=== PATIENT | female | born 1950 | race Caucasian/White ===

== ENCOUNTER 2017-10-05 22:11 | Inpatient (IN) | payer MEDICARE, BC ==
[~2017-10-05] VITALS: Ht 157.5 cm; Wt 53.5 kg
[~2017-10-05 22:11] MED LIST: DULA0.75 SQ
--- NOTE | 2017-10-05 22:30 | NUR ---
Patient brought in by ambulance transported from [facility], patient came from [facility], patient was given Ativan prior to transport @2119. Patient c/o anxiety, reports alcohol abuse, and was hospitalized 3 days ago.
--- NOTE | 2017-10-05 22:36 | NUR ---
Dr. Eldridge at bedside for MSE.
--- NOTE | 2017-10-05 22:43 | NUR ---
Christos Cesar at bedside for Psych Evaluation.
[2017-10-05] MEDS ORDERED: METF500T6 PO (23:09)
[2017-10-05] MEDS ORDERED: TAMS-3 PO (23:09)
[2017-10-05] MEDS ORDERED: CHOL10005 PO (23:09)
[2017-10-05] MEDS ORDERED: BACL20TA PO (23:09)
[2017-10-05] MEDS ORDERED: TRAZ300T2 PO (23:09)
[2017-10-05] MEDS ORDERED: THYR120T2 PO (23:09)
[2017-10-05] MEDS ORDERED: OXCA300T4 PO (23:09)
[2017-10-05] MEDS ORDERED: QUET300T3 PO (23:09)
[2017-10-05] MEDS ORDERED: HYDR-500 PO (23:09)
[2017-10-05] MEDS ORDERED: DOCU100C36 PO (23:09)
[2017-10-05] MEDS ORDERED: CEPH-570 PO (23:09)
--- NOTE | 2017-10-06 00:29 | NUR ---
Passed report to Kristi Jc.
--- NOTE | 2017-10-06 01:20 | NUR ---
ADMITTED AT APPROX 00;40 A 67Y/O FEMALE FROM [facility] TO [facility] ON A 5150 72HR HOLD FOR GD. HOLD STARTS 10/05 17 @2300 AND WILL END 10/08/17 @2300 .PER HOLD SHE WAS SAID TO BE DEPRESSED UNABLE TO SLEEP HEARING VOICES SAY'YOU ARE BI POLAR'.UPON ADMISSION PATIENT WAS A/O X3 WITH PERIODS OF CONFUSION.PATIENT STATES 'I AM HERE BECAUSE I HAD A BAD REACTION TO A DRUG GABABENTIN'. NOTED TO BE IRRITABLE ,FEARFUL ANXIOUS AND KEPT NODDING AND ROCKING BACK AND FORTH. SHE HOWEVER DENIES SI/HI BUT ABLE TO CONTRACT FOR SAFETY. UPON ASSESMENT THERE IS A SMALL RT. KNEE ABRASION
[2017-10-06] MEDS ORDERED: LITH450T2 PO (01:53)
[2017-10-06] MEDS ORDERED: LORAZEPAM 0.5 MG TABLET PO PRN (02:30)
[2017-10-06] MEDS ORDERED: ZOLPIDEM 5 MG TABLET PO PRN (02:30)
[2017-10-06] MEDS ORDERED: LORAZEPAM 1 MG TABLET PO PRN (02:30)
[2017-10-06] MEDS ORDERED: MAGNESIUM HYDROXIDE 30 ML LIQUID UDC PO PRN (02:30)
[2017-10-06] MEDS ORDERED: ACETAMINOPHEN 325 MG TABLET PO PRN (02:30)
[2017-10-06] MEDS ORDERED: MAG HYDROX/AL HYDROX/SIMETH 30 ML LIQUID UDC PO PRN (02:30)
[2017-10-06 05:25] VITALS: BP 152/81
[2017-10-06 06:05] LABS: *BLOOD, URINE NEGATIVE (NEGATIVE); *CLARITY,URINE CLEAR (CLEAR); *COLOR,URINE YELLOW (YELLOW); *KETONES,URINE 2+ (NEGATIVE); *PROTEIN,URINE TRACE (NEGATIVE); *UROBILINOGEN,URINE 0.2 E.U./dl (NORMAL); LEUKOCYTE ESTERASE ,URINE NEGATIVE (NEGATIVE); NITRITE, URINE POSITIVE (NEGATIVE); UGLUCOSE TRACE (NEGATIVE)
[2017-10-06 06:16] LABS: *BILIRUBIN,URIN 1+ (NEGATIVE)
[2017-10-06 06:22] LABS: BACTERIA,URINE MANY /HPF (NONE SEEN); SQUAMOUS EPITHELIAL CELL,UR MANY /HPF (NONE SEEN); WBC,URINE 0-3 /HPF (0-3)
[2017-10-06 07:30] VITALS: BP 153/71
[2017-10-06] MEDS: LORAZEPAM 0.5 MG TABLET PO PRN ×2 (08:41→14:47)
[2017-10-06] MEDS: ESCITALOPRAM OXALATE 10 MG TABLET PO SCH ×2 (09:15→17:13)
[2017-10-06] MEDS: CEPHALEXIN MONOHYDRATE 500 MG CAPSULE PO SCH ×3 (12:09→21:48)
--- NOTE | 2017-10-06 12:15 | NUR ---
KEFLEX ORDERED FOR EVERY 8 HOURS AND SCHEDULED FOR 11 30 AM NOT 1400 TOO CLOSE TO GIVE
[2017-10-06 15:02] VITALS: BP 158/82
--- NOTE | 2017-10-06 15:36 | NUR ---
Social Work Discharge Note: Patient requested call to [facility]. [phone]. [employer] student spoke with Ariel mckenzie who confirmed that her belongings are there. Patient was recently detoxing from alcohol at that rehabilitation facility. Pt. has an apartment at [address] [place] [address]. [address], [facility] [address] and will return there once stable. Pt. also says she wants to go to [place] once she is stable. She says she has already made plans for this. This plan will be explored further. patient's baseline is not clear. She remains very anxious currently. Her discharge plan will be explored further once she is more stable.
[2017-10-06] MEDS: MULTIVITAMINS,THERAPEUTIC TABLET PO SCH (16:00)
[2017-10-06] MEDS: DOCUSATE SODIUM 100 MG CAPSULE PO SCH (17:12)
[2017-10-06] MEDS: THIAMINE HCL 100 MG TABLET PO SCH (17:12)
[2017-10-06] MEDS: TAMSULOSIN HCL 0.4 MG CAP.SR.24H PO SCH (17:13)
[2017-10-06] MEDS: AMLODIPINE 5 MG TABLET PO SCH (17:13)
[2017-10-06] MEDS: FOLIC ACID 1 MG TABLET PO SCH (17:13)
[2017-10-06] MEDS: LITHIUM CARBONATE 300 MG CAPSULE PO SCH (17:14)
[2017-10-06 19:57] VITALS: BP 142/71
[2017-10-06] MEDS: QUETIAPINE FUMARATE 100 MG TABLET PO SCH (20:14)
--- NOTE | 2017-10-06 20:30 | NUR ---
RECEIVED PATIENT IN HER ROOM, HE WAS NOTED A/O X 3. SHE IS ABLE TO WALK WITH SLOW STEADY GAIT AND ABLE TO MAKE HER NEEDS KNOWN. SHE WAS NOTED WITHDRAWN, DEPRESSED MOOD, BLUNTED AFFECT. PATIENT DENIES SI OR ANY THOUGHT TO HARM SELF. SHE IS ABLE TO CFS. DENIES PAIN OR DISCOMFORT. PT CONTINUE COMPLIANT WITH MEDICATION REGIMENT AT THIS TIME. SAFETY EMPHASIS, BED AT LOWEST POSITION WITH WHEELS LOCKED AND FREQUENT HEAD CHECKS.
--- NOTE | 2017-10-07 01:49 | NUR ---
PT CAME OUT OF HER ROOM REQUESTING A "SLEEPING PILL". AMBIEN 5MG PO PRN FOR INSOMNIA WAS GIVEN PER NURSE ASSESSMENT AND PT REQUEST. WILL CONTINUE TO MONITOR CLOSELY.
[2017-10-07] MEDS: CEPHALEXIN MONOHYDRATE 500 MG CAPSULE PO SCH ×3 (06:16→21:05)
[2017-10-07] MEDS: THYROID 60 MG TABLET PO SCH (06:17)
[2017-10-07] MEDS: BLOOD SUGAR DIAGNOSTIC 1 EACH STRIP VI SCH ×2 (06:20→09:24)
[2017-10-07] MEDS: LORAZEPAM 0.5 MG TABLET PO PRN ×3 (06:23→17:08)
--- NOTE | 2017-10-07 06:47 | NUR ---
PATIENT SLEPT FOR APPROX 7.30 HRS THROUGH THE NIGHT. BGL IS 122. PATIENT WAS NOTED WITH ANXIOUS MOOD. SHE IS ASKING TO SEE HER PSYCH MD. HE STATED, "I NEED MORE MEDICATION FOR BIPOLAR, I AM NOT TAKING ENOUGH. WHAT TIME AM I GOING TO SEE THE DOCTOR." PATIENT WAS REDIRECTED MULTIPLE TIME. ATIVAN 0.5MG PO PRN WAS GIVEN FOR ANXIOUS BX. WILL CONTINUE TO MONITOR.
[2017-10-07 07:30] VITALS: BP 139/74
[2017-10-07 07:58] LABS: BASOPHILS % (AUTO) 0.8 % (0.0-2.0); EOSINOPHILS # (AUTO) 0.1 K/uL (0.0-0.7); EOSINOPHILS % (AUTO) 1.5 % (0.0-7.0); HEMATOCRIT 33.7 % (31.2-41.9); HEMOGLOBIN 11.6 g/dL (10.9-14.3); LYMPHOCYTES # (AUTO) 1.3 K/uL (20.0-40.0); LYMPHOCYTES % (AUTO) 19.8 % (20.5-51.5); MEAN CORPUSCULAR HEMOGLOBIN 28.9 uug (24.7-32.8); MEAN CORPUSCULAR HGB CONC 35 g/dL (32.3-35.6); MONOCYTES # (AUTO) 0.5 K/uL (2.0-10.0); MONOCYTES % (AUTO) 8.1 % (0.0-11.0); NEUTROPHILS # (AUTO) 4.4 K/uL (1.8-8.9); NEUTROPHILS % (AUTO) 69.8 % (38.5-71.5); PLATELET COUNT (AUTO) 277 K/uL (179-408); RED BLOOD CELL COUNT(AUTO) 4.01 MIL/uL (3.63-4.92); WHITE BLOOD COUNT (AUTO) 6.4 K/uL (3.8-11.8)
--- NOTE | 2017-10-07 08:00 | NUR ---
RECEIVED PATIENT IN BED, AFEBRILE, A/O X 3. SHE IS ABLE TO WALK WITH SLOW STEADY GAIT AND ABLE TO VERBALIZE KNOWN NEEDS. SHE WAS NOTED WITHDRAWN, DEPRESSED MOOD, BLUNTED AFFECT. PATIENT DENIES PAIN OR ANY THOUGHT TO HARM SELF. SHE IS ABLE TO CFS. DENIES DISCOMFORT. PT CONTINUE COMPLIANT WITH MEDICATION REGIMENT AT THIS TIME. SAFETY EMPHASIS, BED AT LOWEST POSITION WITH WHEELS LOCKED AND FREQUENT HEAD CHECKS.
[2017-10-07 08:15] LABS: BILIRUBIN,TOTAL 0.2 mg/dL (0.2-1.0); CREATININE 0.8 mg/dL (0.6-1.3); MAGNESIUM 1.5 mg/dL (1.8-2.4); PHOSPHOROUS 3.1 mg/dL (2.5-4.9); POTASSIUM 3.9 mmol/L (3.5-5.1); TOTAL PROTEIN, SERUM 6.2 g/dL (6.4-8.2)
[2017-10-07] MEDS: TAMSULOSIN HCL 0.4 MG CAP.SR.24H PO SCH ×2 (08:31→17:08)
[2017-10-07] MEDS: FOLIC ACID 1 MG TABLET PO SCH (08:31)
[2017-10-07 08:32] LABS: THYROID STIMULATING HORMONE 5.4 mIU/mL (0.358-3.740)
[2017-10-07] MEDS: LITHIUM CARBONATE 300 MG CAPSULE PO SCH ×2 (08:32→17:09)
[2017-10-07] MEDS: MULTIVITAMINS,THERAPEUTIC TABLET PO SCH (08:32)
[2017-10-07] MEDS: OXCARBAZEPINE 300 MG TABLET PO SCH (08:32)
[2017-10-07] MEDS: THIAMINE HCL 100 MG TABLET PO SCH (08:32)
[2017-10-07] MEDS: DOCUSATE SODIUM 100 MG CAPSULE PO SCH ×2 (08:32→17:00)
[2017-10-07] MEDS: CHOLECALCIFEROL 1,000 UNIT TABLET PO SCH (08:32)
[2017-10-07] MEDS: AMLODIPINE 5 MG TABLET PO SCH (08:33)
[2017-10-07] MEDS ORDERED: THYROID 120 MG PO SCH (09:00)
[2017-10-07] MEDS ORDERED: MAGNESIUM OXIDE 400 MG TABLET PO ONE (13:45)
--- NOTE | 2017-10-07 15:06 | NUR ---
Gps/Analysis Manager- Ambulatory, encouraged to attend her group therapy, Compliant with her routine medications, denies any discomfort Adequate fluid intake.
[2017-10-07 16:07] VITALS: BP 104/78
[2017-10-07 19:29] VITALS: BP 149/70
[2017-10-07] MEDS: QUETIAPINE FUMARATE 100 MG TABLET PO SCH (20:27)
--- NOTE | 2017-10-07 20:56 | NUR ---
rECEIVED PATIENT IN HER ROOM RESTING. ALERT AND ORIENTED X 3. ABLE TO WALK WITH SLOW STEADY GAIT AND MAKING NEEDS KNOWN. SHE WAS NOTED WITHDRAWN, DEPRESSED MOOD AND A BLUNTED AFFECT. DENIES ANY SUICIDAL IDEATION OR ANY THOUGHT TO HARM SELF. aBLE TO CONTRACT FOR SAFETY. DENIES ANY PAIN NOR ANY DISCOMFORT. COMPLIANT WITH MEDICATION REGIMEN AT THIS TIME. SAFETY EMPHASIS MAINTAINED. BED IN LOWEST POSITION WITH WHEELS LOCKED AND FREQUENT HEAD CHECKS. VITAL SIGNS TAKEN AND RECORDED. WILL MONITOR PATIENT.
--- NOTE | 2017-10-08 00:02 | NUR ---
SLEEPING UPON ROUNDS. NO ACUTE DISTRESS NOTED. WILL MONITOR PATIENT.
[2017-10-08] MEDS: LORAZEPAM 0.5 MG TABLET PO PRN ×3 (06:14→17:05)
[2017-10-08] MEDS: CEPHALEXIN MONOHYDRATE 500 MG CAPSULE PO SCH ×2 (06:14→14:13)
[2017-10-08] MEDS: THYROID 60 MG TABLET PO SCH (06:15)
--- NOTE | 2017-10-08 06:18 | NUR ---
WAKE UP EARLY, IN NO ACUTE DISTRESS. ATIVAN 0.5 PO GIVEN PER REQUEST. TOLERATED OTHER PILLS WITHOUT ANY DIFFICULTY. MAKING NEEDS KNOWN.
--- NOTE | 2017-10-08 06:22 | NUR ---
ACCUCHECK THIS AM WAS 116.
[2017-10-08] MEDS: BLOOD SUGAR DIAGNOSTIC 1 EACH STRIP VI SCH (07:27)
[2017-10-08 07:53] VITALS: BP 141/70
[2017-10-08] MEDS: ESCITALOPRAM OXALATE 10 MG TABLET PO SCH (08:12)
[2017-10-08] MEDS: LITHIUM CARBONATE 300 MG CAPSULE PO SCH ×2 (08:12→16:33)
[2017-10-08] MEDS: MULTIVITAMINS,THERAPEUTIC TABLET PO SCH ×2 (08:12→09:00)
[2017-10-08] MEDS: DOCUSATE SODIUM 100 MG CAPSULE PO SCH ×4 (08:12→16:33)
[2017-10-08] MEDS: THIAMINE HCL 100 MG TABLET PO SCH ×2 (08:13→09:00)
[2017-10-08] MEDS: TAMSULOSIN HCL 0.4 MG CAP.SR.24H PO SCH ×2 (08:13→16:33)
[2017-10-08] MEDS: CHOLECALCIFEROL 1,000 UNIT TABLET PO SCH ×2 (08:13→09:00)
[2017-10-08] MEDS: FOLIC ACID 1 MG TABLET PO SCH (08:13)
[2017-10-08] MEDS: AMLODIPINE 5 MG TABLET PO SCH (08:13)
[2017-10-08] MEDS: OXCARBAZEPINE 300 MG TABLET PO SCH (08:13)
--- NOTE | 2017-10-08 12:09 | NUR ---
Initial DC Plan: Patient was previously residing at [facility] but is planning to return home [[address] [place] [address];[phone]] upon discharge. SW will follow up with MD, patient, and patient's son Kendrick [[phone]] to discuss most appropriate discharge plans. Patient will be provided a brief substance abuse intervention. SW will form a safe and proper discharge.
--- NOTE | 2017-10-08 13:53 | NUR ---
Firearms Reporting: RAKESH submitted Mental Health Report to [facility] on 10/08.
--- NOTE | 2017-10-08 14:14 | NUR ---
Gps/Overnight Stocker- Verbalized feelings of sadness, feeling of wanting to cry per patient, " i cant moved, i idont have energy to do anythiing ". Encouraged participation in her group therapy, emotionally labile.Continue to monitor patient, encouraged continued verbalizations of her feelings.
[2017-10-08 15:51] VITALS: BP 127/70
[2017-10-08] MEDS: QUETIAPINE FUMARATE 100 MG TABLET PO SCH (20:31)
[2017-10-08 21:50] VITALS: BP 126/67
[2017-10-09] MEDS: THYROID 60 MG TABLET PO SCH (06:04)
[2017-10-09] MEDS: BLOOD SUGAR DIAGNOSTIC 1 EACH STRIP VI SCH (06:27)
[2017-10-09] MEDS: LORAZEPAM 0.5 MG TABLET PO PRN ×3 (06:31→18:25)
--- NOTE | 2017-10-09 06:40 | NUR ---
GPS: REMAIN CALM AND COOPERATIVE WITH MEDICATIONS AND CARE. SHOWERED THIS MORNING. PATIENT C/O ANXIETY THIS MORNING. ATIVAN 0.5 MG PO GIVEN.SLEPT 7:30 HRS THROUGH THE NIGHT.PATIENT NOTED TEARFUL @ TIME STATED I HAVE NOTHING TO LIVE. I AM DEPRESSED. EMOTIONAL SUPPORT PROVIDED. CONTINUE MONITORING FOR SAFETY.
[2017-10-09 07:09] LABS: BASOPHILS % (AUTO) 0.7 % (0.0-2.0); EOSINOPHILS # (AUTO) 0.2 K/uL (0.0-0.7); EOSINOPHILS % (AUTO) 2.8 % (0.0-7.0); HEMATOCRIT 34.9 % (31.2-41.9); HEMOGLOBIN 12.1 g/dL (10.9-14.3); LYMPHOCYTES % (AUTO) 29.2 % (20.5-51.5); MEAN CORPUSCULAR HGB CONC 35 g/dL (32.3-35.6); MEAN CORPUSCULAR VOLUME 83.8 fL (75.5-95.3); MONOCYTES # (AUTO) 0.6 K/uL (2.0-10.0); MONOCYTES % (AUTO) 8.4 % (0.0-11.0); NEUTROPHILS # (AUTO) 3.9 K/uL (1.8-8.9); NEUTROPHILS % (AUTO) 58.9 % (38.5-71.5); PLATELET COUNT (AUTO) 318 K/uL (179-408); RED BLOOD CELL COUNT(AUTO) 4.17 MIL/uL (3.63-4.92); WHITE BLOOD COUNT (AUTO) 6.7 K/uL (3.8-11.8)
[2017-10-09 07:52] LABS: BILIRUBIN,TOTAL 0.3 mg/dL (0.2-1.0); CREATININE 0.9 mg/dL (0.6-1.3); MAGNESIUM 1.7 mg/dL (1.8-2.4); PHOSPHOROUS 3.6 mg/dL (2.5-4.9); POTASSIUM 3.9 mmol/L (3.5-5.1); TOTAL PROTEIN, SERUM 6.2 g/dL (6.4-8.2)
[2017-10-09 07:54] VITALS: BP 140/65
[2017-10-09] MEDS: AMLODIPINE 5 MG TABLET PO SCH (08:11)
[2017-10-09] MEDS: FOLIC ACID 1 MG TABLET PO SCH (08:11)
[2017-10-09] MEDS: DOCUSATE SODIUM 100 MG CAPSULE PO SCH ×2 (08:11→16:02)
[2017-10-09] MEDS: CHOLECALCIFEROL 1,000 UNIT TABLET PO SCH (08:11)
[2017-10-09] MEDS: LITHIUM CARBONATE 300 MG CAPSULE PO SCH ×2 (08:21→16:02)
[2017-10-09] MEDS: THIAMINE HCL 100 MG TABLET PO SCH (08:21)
[2017-10-09] MEDS: TAMSULOSIN HCL 0.4 MG CAP.SR.24H PO SCH ×2 (08:21→16:02)
[2017-10-09] MEDS: OXCARBAZEPINE 300 MG TABLET PO SCH (08:21)
[2017-10-09] MEDS: MULTIVITAMINS,THERAPEUTIC TABLET PO SCH (08:21)
[2017-10-09] MEDS ORDERED: MAGNESIUM OXIDE 400 MG TABLET PO ONE (11:00)
[2017-10-09 15:37] VITALS: BP 134/73
[2017-10-09 20:00] VITALS: BP 124/72
[2017-10-09] MEDS: QUETIAPINE FUMARATE 100 MG TABLET PO SCH (20:03)
[2017-10-10] MEDS: THYROID 60 MG TABLET PO SCH (06:13)
--- NOTE | 2017-10-10 06:29 | NUR ---
GPS: REMAIN CALM AND COOPERATIVE WITH CARE. NO AGITATION NOTED AT THIS TIME.SLEPT 7.5 HRS THROUGH THE NIGHT.RESTING IN BED COMFORTABLY. CONTINUE PLAN OF CARE.
[2017-10-10] MEDS: BLOOD SUGAR DIAGNOSTIC 1 EACH STRIP VI SCH ×2 (06:47→06:57)
[2017-10-10] MEDS: LORAZEPAM 0.5 MG TABLET PO PRN ×2 (06:52→13:03)
--- NOTE | 2017-10-10 06:55 | NUR ---
GPS: PATIENT C/O ANXIETY. ATIVAN 0.5 MG PO GIVEN PER PATIENT REQUESTED.
[2017-10-10 08:25] VITALS: BP 115/54
[2017-10-10] MEDS: OXCARBAZEPINE 300 MG TABLET PO SCH (08:59)
[2017-10-10] MEDS: CHOLECALCIFEROL 1,000 UNIT TABLET PO SCH (08:59)
[2017-10-10] MEDS: LITHIUM CARBONATE 300 MG CAPSULE PO SCH ×2 (08:59→16:59)
[2017-10-10] MEDS: DOCUSATE SODIUM 100 MG CAPSULE PO SCH ×2 (08:59→16:59)
[2017-10-10] MEDS: THIAMINE HCL 100 MG TABLET PO SCH (08:59)
[2017-10-10] MEDS: MULTIVITAMINS,THERAPEUTIC TABLET PO SCH (09:00)
[2017-10-10] MEDS: TAMSULOSIN HCL 0.4 MG CAP.SR.24H PO SCH ×2 (09:00→16:59)
[2017-10-10] MEDS: FOLIC ACID 1 MG TABLET PO SCH (09:00)
[2017-10-10] MEDS: AMLODIPINE 5 MG TABLET PO SCH (09:01)
--- NOTE | 2017-10-10 11:44 | NUR ---
RECEIVED Pt IN BED, AWAKE A/O X 3, COOPERATIVE, ANXIETY NOTED, DEPRESSED, FLAT AFFECT, COMPLIANT WITH MEDS AND CARE STAFF, DENIES SI. Pt PARTICIPATED IN GROUP ACTIVITIES THIS MORNING. Pt CAME TO NURSE ASKING FOR ATIVAN DUE TO ANXIETY. ATIVAN WAS GIVEN LESS THAN 5 HOURS AGO BY SLIP MAKER NURSE. ENCOURAGED Pt TO USE BREATHING/RELAXATION TECHNIQUES. WILL CLOSELY MONITOR Pt THROUGHOUT THE SHIFT.
--- NOTE | 2017-10-10 13:30 | NUR ---
Pt STILL ANXIOUS AND CONTINUOUSLY REQUESTING FOR ATIVAN. ASSESSED BY NURSE, Pt STATED 10/10 LEVEL OF ANXIETY, ADMINISTERED ATIVAN 0.5 MG PO PER ORDER. WILL CONTINUE TO MONITOR Pt ANXIETY. Pt ACCUCHECK WAS DISCONTINUED BY PHYSICIAN, WILL CHANGE CURRENT CONSISTENT CARB DIET TO REGULAR DIET. FOOD SERVED FOR LUNCH WAS BASED ON CARB DIET, Pt REFUSED TO EAT, CALLED DIETARY AND EXPLAINED THAT THE DIET WILL BE CHANGED TO REGULAR. ORDERED PEANUT BUTTER AND JELLY SANDWICH PER Pt REQUEST.
[2017-10-10 16:27] VITALS: BP 133/54
[2017-10-10 20:00] VITALS: BP 119/69
[2017-10-10] MEDS: QUETIAPINE FUMARATE 100 MG TABLET PO SCH (20:48)
--- NOTE | 2017-10-10 23:59 | NUR ---
PHARMACY NOTE: TRILEPTAL CANCELLED IN ERROR, WRONG PATIENT. REORDERED.
[2017-10-11] MEDS: THYROID 60 MG TABLET PO SCH (06:28)
--- NOTE | 2017-10-11 06:55 | NUR ---
Pt REFUSED ABREVA THIS MORNING. REMAINS IRRITABLE AND LABILE.
[2017-10-11] MEDS ORDERED: BLOOD SUGAR DIAGNOSTIC 1 EACH STRIP VI SCH (07:00)
[2017-10-11 07:30] VITALS: BP 135/54
[2017-10-11] MEDS: DOCUSATE SODIUM 100 MG CAPSULE PO SCH (08:46)
[2017-10-11] MEDS: TAMSULOSIN HCL 0.4 MG CAP.SR.24H PO SCH (08:47)
[2017-10-11] MEDS: FOLIC ACID 1 MG TABLET PO SCH (08:48)
[2017-10-11 08:49] VITALS: BP 135/54
[2017-10-11] MEDS: LORAZEPAM 0.5 MG TABLET PO PRN (08:49)
[2017-10-11] MEDS: MULTIVITAMINS,THERAPEUTIC TABLET PO SCH (08:49)
[2017-10-11] MEDS: CHOLECALCIFEROL 1,000 UNIT TABLET PO SCH (08:49)
[2017-10-11] MEDS: THIAMINE HCL 100 MG TABLET PO SCH (08:49)
[2017-10-11] MEDS: AMLODIPINE 5 MG TABLET PO SCH (08:49)
[2017-10-11] MEDS: LITHIUM CARBONATE 300 MG CAPSULE PO SCH (08:52)
[2017-10-11] MEDS ORDERED: OXCARBAZEPINE 300 MG TABLET PO SCH (09:00)
--- NOTE | 2017-10-11 09:21 | NUR ---
DC Note: Patient will be discharged home [[address] [place] [address]; [phone]] via private transportation. Patient's brother Cy Galarza [[phone]] will garbage pick up worker patient from the hospital. Patient is alert and oriented x4 and denies SI and HI. She is aware and agreeable to discharge plans. Patient will follow up with her linux support engineer Dr. Fadi Kang [[address], [place] [address]; ] and psychiatrist Dr. Mitchell Knutson [[address], [place] [address]; ]. Patient was provided with additional outpatient mental health resources to [facility] , [facility] Swain , and the [place] [facility] . Patient was also provided a brief substance abuse intervention for alcohol and opiate dependency and provided substance abuse referrals for [facility] [ ], [facility] [ ], and [facility] [ ]. Patient was encouraged to present at [facility] on October 12, 2017 at 9am for intake screening.
--- NOTE | 2017-10-11 10:22 | NUR ---
Patient is for discharged home today, discharged instructions reviewed with patient and brother, educate the importance of medication compliant and follow up check up, education materials and prescription given, properties and clothes returned, verbalized understanding and signed discharged papers. Patient in stable condition, denies suicidal/homicidal ideations, no c/o pain or discomfort noted, V/S stable. Patient left the unit at around 1015 via wheelchair accompanied by brother.
== END 2017-10-11 11:00 | disposition home or self-care (01) | DRG 885 ==
LOC: ER 22:12 → GPS 10-06 00:24
PROVIDERS: ADMIT Psychiatry & Neurology Psychiatry; ATTEND Internal Medicine
DX: F31.5 Bipolar disorder, current episode depressed, severe, with psychotic features (principal); E11.65 Type 2 diabetes mellitus with hyperglycemia; E83.42 Hypomagnesemia; F13.20 Sedative, hypnotic or anxiolytic dependence, uncomplicated; E83.51 Hypocalcemia; E87.1 Hypo-osmolality and hyponatremia; Z79.84 Long term (current) use of oral hypoglycemic drugs; Z79.899 Other long term (current) drug therapy; F41.9 Anxiety disorder, unspecified; G47.9 Sleep disorder, unspecified; G89.29 Other chronic pain; Z91.5 Personal history of self-harm; E03.9 Hypothyroidism, unspecified; I10 Essential (primary) hypertension; Z87.442 Personal history of urinary calculi; F19.10 Other psychoactive substance abuse, uncomplicated; F10.11 Alcohol abuse, in remission; Y90.9 Presence of alcohol in blood, level not specified; Z87.440 Personal history of urinary (tract) infections; Z88.2 Allergy status to sulfonamides
CPT/HCPCS: 36415; 70030-TC; 83735; 84100; 84443; 85025; 87086; 93005; A4663